=== PATIENT | female | born 1980 | race Caucasian/White ===

== ENCOUNTER 2023-02-02 07:50 | Emergency (ER) | payer BC ==
[~2023-02-02] VITALS: Ht 180.3 cm; Wt 109.1 kg
[2023-02-02] MEDS ORDERED: SULF-261 PO (08:44)
[2023-02-02] MEDS ORDERED: CEPH-558 PO (08:44)
[2023-02-02 09:15] VITALS: BP 135/82
== END 2023-02-02 09:02 | disposition home or self-care (01) ==
LOC: EMS 07:55
DX: L02.212 Cutaneous abscess of back [any part, except buttock and flank] (principal); F41.9 Anxiety disorder, unspecified; F17.210 Nicotine dependence, cigarettes, uncomplicated; Z90.49 Acquired absence of other specified parts of digestive tract; Z90.89 Acquired absence of other organs; Z98.890 Other specified postprocedural states; Z88.6 Allergy status to analgesic agent; Z91.018 Allergy to other foods
CPT/HCPCS: 99283; Z7502